=== PATIENT | male | born 1960 | race Caucasian/White ===

== ENCOUNTER 2018-08-16 07:25 | Emergency (ER) | payer BC ==
[~2018-08-16] VITALS: Ht 172.7 cm; Wt 87.7 kg
[~2018-08-16 07:25] MED LIST: CENTRUM SILVER1 TA1 PO; VITAMIN C500 MG PO; VITAMIN E1000 U/CAP PO
[2018-08-16 07:28] VITALS: TEMP 97.8
[2018-08-16 09:36] VITALS: BP 146/91; PULSE 98
== END 2018-08-16 09:37 | disposition home or self-care (01) ==
LOC: COL.ER 07:25
DX: S40.011A Contusion of right shoulder, initial encounter (principal); S50.01XA Contusion of right elbow, initial encounter; S60.211A Contusion of right wrist, initial encounter; W00.0XXA Fall on same level due to ice and snow, initial encounter; Y92.59 Other trade areas as the place of occurrence of the external cause
CPT/HCPCS: J1885

== ENCOUNTER → 2018-10-04 | Outpatient (CLI) | payer OTHER | LOC: COL.RAD 12:14 | DX: S46.011A Strain of muscle(s) and tendon(s) of the rotator cuff of right shoulder, initial encounter (principal); M75.41 Impingement syndrome of right shoulder; S40.011A Contusion of right shoulder, initial encounter; Z91.81 History of falling ==

== ENCOUNTER 2018-10-05 14:42 | Outpatient (RCR) | payer OTHER | END 2018-11-22 | disposition home or self-care (01) | LOC: WSOH | DX: S46.011A Strain of muscle(s) and tendon(s) of the rotator cuff of right shoulder, initial encounter (principal); M75.41 Impingement syndrome of right shoulder; S40.011A Contusion of right shoulder, initial encounter; W00.0XXA Fall on same level due to ice and snow, initial encounter; Y93.H1 Activity, digging, shoveling and raking; Y92.214 College as the place of occurrence of the external cause; Y99.0 Civilian activity done for income or pay ==

== ENCOUNTER → 2019-01-20 | Outpatient (CLI) | payer BC | LOC: COL.RAD 12:26 | DX: Z13.6 Encounter for screening for cardiovascular disorders (principal); K76.89 Other specified diseases of liver; M46.95 Unspecified inflammatory spondylopathy, thoracolumbar region; M51.35 Other intervertebral disc degeneration, thoracolumbar region | CPT/HCPCS: Q9967 ==